=== PATIENT | female | born 1995 | race Caucasian/White ===

== ENCOUNTER 2021-02-08 17:35 | Emergency (ER) | payer OTHER ==
[~2021-02-08] VITALS: Ht 172 cm; Wt 121.8 kg
[~2021-02-08 17:35] MED LIST: HYDR-34 PO
--- NOTE | 2021-02-08 17:58 | ED General ---
General Stated Complaint: PELVIC/LOW BACK PAIN Source of Information: Patient Exam Limitations: No Limitations History of Present Illness Date Seen by Provider: Feb 08, 2021 Time Seen by Provider: 17:56 Initial Comments To ER with severe pelvic and low back pain. This began a few days ago on the left side of the lower lateral abdomen. It now seems to be in the right low back. She denies fevers chills or nausea. Movement seems to be worsening her pain and the pain now seems to originate in her back she says. No dysuria no bowel changes and she denies possibility of . She does have history of PCOS. Timing/Duration: 1-2 Days Severity: Moderate Associated Systoms: Denies Symptoms Allergies and Home Medications Allergies Coded Allergies: No Known Drug Allergies (Unverified , 07/24/13) Patient Home Medication List Home Medication List Reviewed: Yes Hydrocodone Bit/Acetaminophen (Lortab 7.5 Mg Tablet) 1 Ea Tablet, 1-2 EA PO Q 4 - 6 HR PRN Prescribed by: DAE JULIO on 07/25/13 1316 Hydrocodone/Acetaminophen (Hydrocodone-Acetamin 5-325 mg) 1 Each Tablet, 1 TAB PO Q4H PRN for PAIN-MODERATE (5-7) Prescribed by: HOMAR DENG on 02/08/211922 Prednisone (Prednisone) 20 Mg Tab, 40 MG PO DAILY Prescribed by: HOMAR DENG on 02/08/211921 Review of Systems Review of Systems Constitutional: see HPI EENTM: see HPI Respiratory: no symptoms reported Cardiovascular: no symptoms reported Gastrointestinal: abdominal pain Genitourinary: no symptoms reported Musculoskeletal: see HPI, back pain Skin: no symptoms reported Psychiatric/Neurological: No Symptoms Reported Hematologic/Lymphatic: No Symptoms Reported Past Vzkyssv-Qpwpml-Cnkeji Hx Past Medical History Reproductive Disorders: No Female Reproductive Disorders: Polycystic Ovarian Dis Sexually Transmitted Disease: No HIV/AIDS: No Adverse Reaction/Blood Tranf: No Family Medical History Patient reports no known family medical history. Physical Exam Vital Signs Vital Signs - First Documented 02/08/21 17:40 Temp 36.5 Pulse 91 Resp 18 B/P (MAP) 177/104 (128) Pulse Ox 100 Capillary Refill : Height, Weight, BMI Height: 5'8.00" Weight: 247lbs. 0.0oz. [id number]; BMI Method: General Appearance: No Apparent Distress, WD/WN, Anxious, Obese, Other (Alert pleasant no distress hemodynamically stable) Eyes: Bilateral Eye Normal Inspection, Bilateral Eye PERRL, Bilateral Eye EOMI Neck: Full Range of Motion, Normal Inspection Respiratory: No Accessory Muscle Use, No Respiratory Distress Cardiovascular: Regular Rate, Rhythm, Normal Peripheral Pulses Gastrointestinal: Normal Bowel Sounds, Non Tender, Soft, Other (Her abdomen is nontender to palpation) Back: Normal Inspection Extremity: Normal Capillary Refill, Normal Inspection Neurologic/Psychiatric: Alert, Oriented x3 Skin: Normal Color, Warm/Dry Progress/Results/Core Measures Suspected Sepsis SIRS Temperature: Pulse: Respiratory Rate: Laboratory Tests 02/08/21 17:55: White Blood Count 9.1 Blood Pressure / Mean: Laboratory Tests 02/08/21 17:55: Creatinine 0.82, Platelet Count 314, Total Bilirubin 0.5 Results/Orders Lab Results Laboratory Tests Test 02/08/21 17:55 02/08/21 18:14 Range/Units White Blood Count 9.1 4.3-11.0 10^3/uL Red Blood Count 5.11 3.80-5.11 10^6/uL Hemoglobin 12.5 11.5-16.0 g/dL Hematocrit 40 35-52 % Mean Corpuscular Volume 78 L 80-99 fL Mean Corpuscular Hemoglobin 25 25-34 pg Mean Corpuscular Hemoglobin Concent 31 L 32-36 g/dL Red Cell Distribution Width 14.3 10.0-14.5 % Platelet Count 314 130-400 10^3/uL Mean Platelet Volume 9.7 9.0-12.2 fL Immature Granulocyte % (Auto) 0 % Neutrophils (%) (Auto) 68 42-75 % Lymphocytes (%) (Auto) 24 12-44 % Monocytes (%) (Auto) 7 0-12 % Eosinophils (%) (Auto) 1 0-10 % Basophils (%) (Auto) 1 0-10 % Neutrophils # (Auto) 6.1 1.8-7.8 10^3/uL Lymphocytes # (Auto) 2.2 1.0-4.0 10^3/uL Monocytes # (Auto) 0.6 0.0-1.0 10^3/uL Eosinophils # (Auto) 0.1 0.0-0.3 10^3/uL Basophils # (Auto) 0.1 0.0-0.1 10^3/uL Immature Granulocyte # (Auto) 0.0 0.0-0.1 10^3/uL Sodium Level 139 135-145 MMOL/L Potassium Level 3.7 3.6-5.0 MMOL/L Chloride Level 104 98-107 MMOL/L Carbon Dioxide Level 22 21-32 MMOL/L Anion Gap 13 5-14 MMOL/L Blood Urea Nitrogen 11 7-18 MG/DL Creatinine 0.82 0.60-1.30 MG/DL Estimat Glomerular Filtration Rate 84 BUN/Creatinine Ratio 13 Glucose Level 94 70-105 MG/DL Calcium Level 9.2 8.5-10.1 MG/DL Corrected Calcium 9.0 8.5-10.1 MG/DL Total Bilirubin 0.5 0.1-1.0 MG/DL Aspartate Amino Transf (AST/SGOT) 26 5-34 U/L Alanine Aminotransferase (ALT/SGPT) 34 0-55 U/L Alkaline Phosphatase 51 40-136 U/L Total Protein 8.1 6.4-8.2 GM/DL Albumin 4.3 3.2-4.5 GM/DL Serum Test, Qualitative NEGATIVE NEGATIVE Urine Color YELLOW Urine Clarity CLEAR Urine pH 6.0 5-9 Urine Specific Jackson 1.025 H 1.016-1.022 Urine Protein NEGATIVE NEGATIVE Urine Glucose (UA) NEGATIVE NEGATIVE Urine Ketones TRACE H NEGATIVE Urine Nitrite NEGATIVE NEGATIVE Urine Bilirubin NEGATIVE NEGATIVE Urine Urobilinogen 0.2 < = 1.0 MG/DL Urine Leukocyte Esterase TRACE H NEGATIVE Urine RBC (Auto) NEGATIVE NEGATIVE Urine RBC NONE /HPF Urine WBC RARE /HPF Urine Squamous Epithelial Cells 0-2 /HPF Urine Crystals NONE /LPF Urine Bacteria NEGATIVE /HPF Urine Casts NONE /LPF Urine Mucus NEGATIVE /LPF Urine Culture Indicated NO My Orders Orders - HOMAR DENG TOURIST GUIDE Cbc With Automated Diff (02/08/21 17:48) Comprehensive Metabolic Panel (02/08/21 17:48) Hcg,Qualitative Serum (02/08/21 17:48) Ed Iv/Invasive Line Start (02/08/21 17:48) Ua Culture If Indicated (02/08/21 17:48) Ct Abd/Pelvis Wo(Kidney Stone) (02/08/21 17:48) Ketorolac Injection (Toradol Injection) (02/08/21 18:00) Rx-Hydrocodone/Apap 5-325 Mg (Rx-Vicodin (02/08/21 19:30) Medications Given in ED Current Medications Medications Dose Ordered Sig/Young Route Start Time Stop Time Status Last Admin Dose Admin Ketorolac Tromethamine 15 mg ONCE ONCE IVP 02/08/21 18:00 02/08/21 18:01 DC 02/08/21 18:00 15 MG Vital Signs/I&O 02/08/21 17:40 Temp 36.5 Pulse 91 Resp 18 B/P (MAP) 177/104 (128) Pulse Ox 100 Capillary Refill : Departure Communication (Admissions) Family Conversation 191-her pain seems to be originating in the low back. She states that when she moves it hurts worse in the low back such as bending or twisting and her abdomen is nontender to palpation. Discussed with her the reassuring imaging and laboratory results. She follows with primary care out of [facility]. I will print her off a copy of labs and she will follow-up with them next week. In the meantime we will do some hydrocodone for pain control and prednisone. NAME: KIMBERLYN DODSON [facility] REC#: [id number] PT STATUS: REG ER : 1995 PHYSICIAN: HOMAR DENG APRN ADMIT DATE: 02/08/21/ER Draft Date of Exam:02/08/21 CT ABD/PELVIS WO(KIDNEY STONE) PROCEDURE: CT urinary tract, rule out kidney stone. TECHNIQUE: Multiple contiguous axial images were obtained through the abdomen and pelvis without the use of intravenous contrast. Auto Exposure Controls were utilized during the CT exam to meet ALARA standards for radiation dose reduction. INDICATION: Abdominal pain and low back pain. COMPARISON: 07/24/2013. FINDINGS: The lung bases are clear. The heart is normal in size. The liver demonstrates no focal lesion. There is hypodensity consistent with hepatic steatosis. The pancreas appears normal. The spleen is normal. The adrenal glands appear normal. The kidneys demonstrate no hydronephrosis and no calculi. The bowel loops are nondistended without obstruction. The appendix appears to be previously resected. No free fluid or free air is seen. The aorta is normal in caliber. No lymphadenopathy is seen. No acute osseous abnormality is identified. IMPRESSION: 1. No renal calculi or hydronephrosis. No acute abnormality is seen in the abdomen or pelvis. 2. Hepatic steatosis. Dictated on workstation # [id number] Dict: 02/08/211851 Trans: 02/08/211901 [facility] [id number] Interpreted by: GRISELDA MACKEY MD Electronically signed by: Vonda Primary Impression: Acute low back pain Disposition: HOME, SELF-CARE Condition: Stable Departure-Patient Inst. Decision time for Depature: 19:05 Referrals: NO,LOCAL PHYSICIAN (PCP/Family) Primary Care Physician Patient Instructions: No Instuctions Given, Low Back Pain in Adults, Do I Need an X-ray (or Other Test) for Low Back Pain? Add. Discharge Instructions: 1. Follow-up with your doctor next week for recheck. Return to ER for any concerns or worsening symptoms. Medication as directed. Scripts Hydrocodone/Acetaminophen (Hydrocodone-Acetamin 5-325 mg) 1 Each Tablet 1 TAB PO Q4H PRN for PAIN-MODERATE (5-7), #10 TAB Prov: HOMAR DENG APRN 02/08/21 Prednisone (Prednisone) 20 Mg Tab 40 MG PO DAILY, #6 TAB 0 Refills Prov: HOMAR DENG APRN 02/08/21 HOMAR DENG APRN Feb 08, 2021 17:58
[2021-02-08] MEDS ORDERED: KETOROLAC 30 MG/ML VIAL IVP ONE (18:00)
[2021-02-08 18:17] LABS: BASOPHILS # (AUTO) 0.1 10^3/uL (0.0-0.1); BASOPHILS % (AUTO) 1 % (0-10); EOSINOPHILS # (AUTO) 0.1 10^3/uL (0.0-0.3); EOSINOPHILS % (AUTO) 1 % (0-10); HEMATOCRIT 40 % (35-52); HEMOGLOBIN 12.5 g/dL (11.5-16.0); LYMPHOCYTES # (AUTO) 2.2 10^3/uL (1.0-4.0); LYMPHOCYTES % (AUTO) 24 % (12-44); MEAN CORPUSCULAR HEMOGLOBIN 25 pg (25-34); MEAN CORPUSCULAR HGB CONC 31 g/dL (32-36); MEAN CORPUSCULAR VOLUME 78 fL (80-99); MEAN PLATELET VOLUME 9.7 fL (9.0-12.2); MONOCYTES # (AUTO) 0.6 10^3/uL (0.0-1.0); MONOCYTES % (AUTO) 7 % (0-12); NEUTROPHILS # (AUTO) 6.1 10^3/uL (1.8-7.8); NEUTROPHILS % (AUTO) 68 % (42-75); PLATELET COUNT 314 10^3/uL (130-400); WHITE BLOOD COUNT 9.1 10^3/uL (4.3-11.0)
[2021-02-08 18:23] LABS: BILIRUBIN,URINE NEGATIVE (NEGATIVE); CLARITY,URINE CLEAR; COLOR,URINE YELLOW; GLUCOSE, URINE (UA) NEGATIVE (NEGATIVE); KETONES,URINE TRACE (NEGATIVE); LEUKOCYTE ESTERASE ,URINE TRACE (NEGATIVE); NITRITE,URINE NEGATIVE (NEGATIVE); PROTEIN,URINE NEGATIVE (NEGATIVE)
[2021-02-08 18:29] LABS: ALBUMIN 4.3 GM/DL (3.2-4.5)
[2021-02-08 18:30] LABS: POTASSIUM 3.7 MMOL/L (3.6-5.0)
[2021-02-08 18:31] LABS: CALCIUM 9.2 MG/DL (8.5-10.1)
[2021-02-08 18:32] LABS: TOTAL PROTEIN 8.1 GM/DL (6.4-8.2)
[2021-02-08 18:34] LABS: BILIRUBIN,TOTAL 0.5 MG/DL (0.1-1.0)
[2021-02-08 18:36] LABS: CREATININE SERUM 0.82 MG/DL (0.60-1.30)
[2021-02-08 18:39] LABS: BACTERIA,URINE NEGATIVE /HPF; SQUAMOUS EPITHELIAL CELL,UR 0-2 /HPF; WBC,URINE RARE /HPF
--- NOTE | 2021-02-08 19:02 | Diagnostic Imaging Report ---
PROCEDURE: CT urinary tract, rule out kidney stone. TECHNIQUE: Multiple contiguous axial images were obtained through the abdomen and pelvis without the use of intravenous contrast. Auto Exposure Controls were utilized during the CT exam to meet ALARA standards for radiation dose reduction. INDICATION: Abdominal pain and low back pain. COMPARISON: 07/24/2013. FINDINGS: The lung bases are clear. The heart is normal in size. The liver demonstrates no focal lesion. There is hypodensity consistent with hepatic steatosis. The pancreas appears normal. The spleen is normal. The adrenal glands appear normal. The kidneys demonstrate no hydronephrosis and no calculi. The bowel loops are nondistended without obstruction. The appendix appears to be previously resected. No free fluid or free air is seen. The aorta is normal in caliber. No lymphadenopathy is seen. No acute osseous abnormality is identified. IMPRESSION: 1. No renal calculi or hydronephrosis. No acute abnormality is seen in the abdomen or pelvis. 2. Hepatic steatosis. Dictated by: Dictated on workstation # [id number]
[2021-02-08] MEDS ORDERED: PRD20T PO (19:22)
[2021-02-08] MEDS ORDERED: ACHD5005 PO (19:22)
[2021-02-08 19:30] VITALS: BP 154/98
== END 2021-02-08 19:37 | disposition home or self-care (01) ==
LOC: EDUNIT# 17:35 → ER 17:37
DX: M54.50 Low back pain, unspecified (principal); E66.9 Obesity, unspecified; Z68.45 Body mass index [BMI] 70 or greater, adult
CPT/HCPCS: 36415; 74176; 80053; 81000; 84703; 85025